=== PATIENT | female | born 1975 | race Hispanic/Latino ===

== ENCOUNTER → 2020-12-02 | Outpatient (CLI) | payer OTHER | END | disposition home or self-care (01) | LOC: RAH 12:25 | PROVIDERS: ATTEND Internal Medicine Cardiovascular Disease | DX: Z13.6 Encounter for screening for cardiovascular disorders (principal) | CPT/HCPCS: 75571 ==

== ENCOUNTER 2022-08-23 17:11 | Emergency (ER) | payer OTHER ==
[~2022-08-23] VITALS: Ht 157.5 cm; Wt 71.7 kg
[2022-08-23 18:54] VITALS: BP 121/82
[2022-08-23] MEDS ORDERED: IBUP-2070 PO (20:17)
[2022-08-23] MEDS ORDERED: P-EP-94 PO (20:17)
[2022-08-23] MEDS ORDERED: GUAIF10 PO (20:17)
== END 2022-08-23 20:42 | disposition home or self-care (01) ==
LOC: EDH 17:11
DX: J06.9 Acute upper respiratory infection, unspecified (principal); Z20.822 Contact with and (suspected) exposure to COVID-19
CPT/HCPCS: 99283; 87635; 87804 ×2; C9803